=== PATIENT | female | born 1940 | race African-American/Black ===

== ENCOUNTER 2016-12-04 08:25 | Day surgery (SDC) | payer MEDICARE, OTHER ==
[~2016-12-04 08:25] MED LIST: DIPHENHYDRAMINE HCL 50 MG/ML VIAL ONE; EPINEPHRINE INJ 1 MG/10 ML DISP.SYRIN ONE; FLUMAZENIL INJ 0.5 MG/5 ML VIAL IV ONE; GLUCAGON,HUMAN RECOMB 1 MG INJ ONE; NALOXONE HCL INJ/PF 0.4 MG/1 ML SDV ONE; ONDANSETRON HCL INJ/PF 4 MG/2 ML SDV ONE
[2016-12-04] MEDS: MIDAZOLAM 2 MG/2 ML INJ ONE ×2 (09:39→09:43)
[2016-12-04] MEDS: FENTANYL CITRATE INJ/PF 100 MCG/2 ML AMPUL ONE ×2 (09:41→09:45)
--- NOTE | 2016-12-04 10:07 | Operative Report ---
Operative Report DATE OF SURGERY: 12/04/16 Operative Report: The risks, benefits and alternatives of the procedure including risks of bleeding, perforation requiring surgery are explained to the patient detail and informed consent was obtained. The patient was taken back to the endoscopy suite and placed in the left, lateral decubital position. Timeout was called. Conscious sedation medications are provided. A rectal examination is done which did not reveal any masses, tears or fissures. An Olympus videoscope was inserted into the patient's rectum. The scope was then carefully advanced all the way to the cecum. The cecum was identified by the usual anatomical landmarks including the ileocecal valve as well as the appendiceal office. Photodocumentation is obtained. Prep was good. The scope was then sequentially pulled back via the rest segments of the colon including the ascending colon, hepatic flexure, transverse colon, splenic flexure, descending colon finally to the rectosigmoid portions of the colon. Retroflexion maneuver was performed. PREOPERATIVE DIAGNOSIS: Change of bowel habits POSTOPERATIVE DIAGNOSIS: Diverticulosis. Mild right side inflammation status post biopsy. Internal hemorrhoids. Redundancy of colon OPERATION: Colonoscopy with biopsy SURGEON: JOSELO MAXWELL ANESTHESIA: Moderate Sedation - 4 mg of Versed, 50 mcg of fentanyl. Conscious sedation monitoring time 30 minutes. TISSUE REMOVED OR ALTERED: As noted above. COMPLICATIONS: None. ESTIMATED BLOOD LOSS: None. INTRAOPERATIVE FINDINGS: As described above. PROCEDURE: Patient tolerated procedure well. No immediate postprocedure complications are noted. Patient discharged in good condition. Discharge date 12/04/2016. Discharge diet: Regular. Discharge activity: Regular. 2-3 week follow-up to discuss findings. Patient is instructed to call the office or proceed to the emergency room should there be any further problems or questions. We will await biopsies. Likely does not need another colonoscopy for screening purposes.
[2016-12-04 10:56] VITALS: BP 131/59
== END 2016-12-04 11:09 | disposition home or self-care (01) ==
LOC: END 08:25
PROVIDERS: ATTEND Internal Medicine Gastroenterology
PROC: 0DBF8ZX Excision of Right Large Intestine, Via Natural or Artificial Opening Endoscopic, Diagnostic (ICD-10-PCS; principal; 2016-12-04 09:30)
DX: K57.30 Diverticulosis of large intestine without perforation or abscess without bleeding (principal); K52.9 Noninfective gastroenteritis and colitis, unspecified; K64.8 Other hemorrhoids
CPT/HCPCS: 45380; 82962; 88305 ×2; J2250; J3010; J0171; J1200; J1610; J2310; J2405; J3490

== ENCOUNTER → 2020-04-24 | Outpatient (CLI) | payer MEDICARE, OTHER ==
--- NOTE | 2020-04-24 11:07 | RADIOLOGY REPORT (SQ) ---
EXAM DESCRIPTION: MRI LUMBAR SPINE WITHOUT IMAGES COMPLETED DATE/TIME: 04/24/2020 9:52 am REASON FOR STUDY: M54.5 LOW BACK PAIN M54.5 LOW BACK PAIN COMPARISON: None. TECHNIQUE: Sagittal and Axial imaging includes T1, T2, STIR and gradient echo sequences. Coronal T2/ HASTE imaging. LIMITATIONS: None. FINDINGS: VISUALIZED UPPER ABDOMEN: No acute abnormality. SEGMENTATION: There are 5 lumbar-type vertebral bodies. There is no transitional segment at the lumb osacral junction. ALIGNMENT: Dextroconvex scoliotic curvature of the lumbar spine centered at L3, grade 1 anterolisthes is of L4 relative to L5 and grade 1 retrolisthesis of L5 relative to S1. VERTEBRAE: Intact. BONE MARROW: Normal. DISC SIGNAL: The intervertebral discs from L1-L2 to L5-S1 are narrowed and desiccated. POSTERIOR ELEMENTS: Intact. HARDWARE: None in the spine. CORD AND CONUS: The conus medullaris terminates at the level of L1-L2 and it is normal in caliber and signal intensity. SOFT TISSUES: No acute abnormality. L1-L2: Broad-based disc bulge eccentric to the right that encroaches on the inferior aspect of the ri ght neuroforamen without mass effect upon the nerve roots. There is no spinal stenosis. L2-L3: Broad-based disc bulge eccentric to the left, hypertrophy of ligamentum flavum, and degenerati on of the facet joints. These findings result in mild to moderate compression of thecal sac, grant сергей of the intrathecal left L3 nerve root in the lateral recess, and mild left foraminal stenosis. L3-L4: Broad-based disc bulge eccentric to the left, hypertrophy of the ligamentum flavum, and degene ration of the facet joints. These findings result in mild to moderate compression of the thecal sac, compression of the intrathecal left L4 nerve root in the lateral recess, and mild left foraminal zuly nosis. L4-L5: Broad-based disc bulge eccentric to the left, hypertrophy of the ligamentum flavum, and degene ration of the facet joints. These findings result in moderate compression of the thecal sac, grant сергей of the intrathecal left L5 nerve root in lateral recess, and mild bilateral foraminal stenosis. L5-S1: Broad-based disc bulge eccentric to the right, mild hypertrophy of the ligamentum flavum, and degeneration of the facet joints. These findings result in compression of the intrathecal S1 nerve r oots in the lateral recesses, mild compression of the intraforaminal right L5 nerve root, and moderat e right and mild left foraminal stenosis. LOWER THORACIC: No stenosis. SACRUM: Intact. OTHER: No other findings. 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 TECHNICAL DOCUMENTATION: JOB ID: [id number] [employer]- All Rights Reserved Reading location - IP/workstation name: [email or web address]
== END ==
LOC: RAD 09:03
PROVIDERS: ATTEND Physician Assistant
DX: M51.86 Other intervertebral disc disorders, lumbar region (principal); M47.896 Other spondylosis, lumbar region; M54.5 Low back pain
CPT/HCPCS: 72148